=== PATIENT | male | born 1985 | race Two or more races ===

== ENCOUNTER 2018-02-13 07:30 | Inpatient (IN) | payer OTHER ==
[~2018-02-13] VITALS: Ht 182.9 cm; Wt 101.2 kg
[2018-02-20] MEDS ORDERED: NORCO 5-325 TA1 EACH ORAL (13:09)
[2018-02-21] VITALS (14 sets, daily range): BP systolic 119–134; BP diastolic 66–80
[2018-02-21] MEDS ORDERED: ceFAZolin sod 2 GM in D5W 110 ML IVPB ONE (07:00)
[2018-02-21] MEDS ORDERED: Midazolam 2mg/2ml Inj ONE (09:45)
[2018-02-21] MEDS ORDERED: fentaNYL 100 mcg/2 mL IV ONE (09:45)
[2018-02-21] MEDS ORDERED: Lidocaine 1% MPF 10mg/ml 5ml ONE (09:50)
[2018-02-21] MEDS ORDERED: Sodium Chloride 10ml vial INJ ONE ×3 (09:53→13:03)
--- NOTE | 2018-02-21 10:21 | Pre-Procedure Note/Attestation ---
Pre-Procedure Note/Attestation Complete Prior to Procedure Procedure Narrative: TLIF L5S1 and L45 with IC BMAC Indications for Procedure Pre-Operative Diagnosis: LUMBAR SPONDYLOSIS, STENOSIS, ANNULAR TEAR AND RADICULOPATHY Attestation I attest that I discussed the nature of the procedure; its benefits; risks and complications; and alternatives (and the risks and benefits of such alternatives ), prior to the procedure, with the patient (or the patient's legal dental detail representative). I attest that, if there was a reasonable possibility of needing a blood transfusion, the patient (or the patient's legal dental detail representative) was given the [facility] standardized written summary, pursuant to the Juancarlos Wib[place] Blood Safety Act ([place] Health and Safety Code # 1645, as amended). I attest that I re-evaluated the patient just prior to the surgery and that there has been no change in the patient's H&P, except as documented below: Mohan Deutsch MD Feb 21, 2018 10:21
[2018-02-21] MEDS ORDERED: Vancomycin 1gm inj IVPB ONE (10:48)
[2018-02-21] MEDS ORDERED: Bacitracin 50000 Units Vial ONE (10:49)
[2018-02-21] MEDS ORDERED: Bupivacaine w/Epi 0.5% 30ml Vial INJ ONE (10:49)
[2018-02-21] MEDS ORDERED: Thrombin 5000 units TOPIC ONE (10:49)
[2018-02-21] MEDS ORDERED: Gelfoam Size TOPIC ONE (10:49)
[2018-02-21] MEDS ORDERED: Succinylcholine 20mg/ml 10ml vial ONE (10:53)
[2018-02-21] MEDS ORDERED: Zemuron 50mg/5ml Inj IV ONE (10:53)
[2018-02-21] MEDS ORDERED: Sterile Water Irrig 1000ml IRRIG ONE (11:00)
[2018-02-21] MEDS ORDERED: LR 1000ml ONE (11:00)
[2018-02-21] MEDS ORDERED: Propofol 1,000mg/ 100ml btl IV ONE (11:00)
[2018-02-21] MEDS ORDERED: NS Irrig 1000ml ONE (11:00)
[2018-02-21] MEDS ORDERED: Heparin 1000 units/ml 1ml Vial ONE (11:10)
[2018-02-21] MEDS ORDERED: Morphine Sulfate 10mg/ml Inj ONE (12:10)
[2018-02-21] MEDS ORDERED: Glycopyrrolate 0.2mg/ml 1ml Vial ONE (12:17)
[2018-02-21] MEDS ORDERED: Ketorolac 30mg Inj ONE (12:17)
--- NOTE | 2018-02-21 12:28 | Anethesia Preoperative Eval ---
Anesthesia Pre-op PMH/ROS General Date of Evaluation: Feb 21, 2018 Time of Evaluation: 10:48 Anesthesiologist: Alberta ASA Score: ASA 2 Mallampati Score Class I : Soft palate, uvula, fauces, pillars visible Class II: Soft palate, uvula, fauces visible Class III: Soft palate, base of uvula visible Class IV: Only hard plate visible Mallampati Classification: Class II Surgeon: La Nena Diagnosis: Lumbar radiculopathy Surgical Procedure: L4-L5 L5-S1 laminotomy with interbody fusion Anesthesia History: none Family History: no anesthesia problems Allergies: Coded Allergies: No Known Allergies (Unverified , 02/20/18) Medications: see eMAR Patient NPO?: Yes NPO Date: Feb 20, 2018 NPO Time: 2358 Past Medical History Cardiovascular: Denies: HTN, CAD, AR, valve dz, arrhythmia, other Pulmonary: Denies: asthma, COPD, JERRI, other Gastrointestinal/Genitourinary: Reports: GERD - mild; Denies: CRI, ESRD, other Neurologic/Psychiatric: Reports: other - chronic mehul; Denies: dementia, CVA, depression/anxiety, TIA Endocrine: Denies: DM, hypothyroidism, steroids, other HEENT: Denies: cataract (L), cataract (R), glaucoma, TRIBE (L), TRIBE (R), other Hematology/Immune: Denies: anemia, DVT, bleeding disorder, other Musculoskeletal/Integumentary: Denies: OA, RA, DJD, DDD, edema, other Other: other - overweight PMH Narrative: as above PSxH Narrative: none Anesthesia Pre-op Phys. Exam Physician Exam Last Vital Signs Date Time Temp Pulse Resp B/P (MAP) Pulse Ox O2 Delivery O2 Flow Rate FiO2 02/21/18 10:06 Room Air 02/21/18 10:04 97.0 59 20 125/75 (92) 97 97.0 Constitutional: NAD Neurologic: CN 2-12 intact Cardiovascular: RRR, no M/R/G Respiratory: CTA Gastrointestinal: S/NT/ND Airway Exam Mallampati Score: Class II MO: full Neck: flexible ROM: full Teeth: missing Dentures: no upper, no lower Anesthesia Pre-op A/P Labs see chart Studies Pre-op Studies: EKG - NSR Risk Assessment & Plan Assessment: ASA 2 Plan: GA with ETT POV prevention neuromonitoring Status Change Before Surgery: No Pre-Antibiotics Drug: Ancef 2gr. Given Within 1 Hr of Incision: Yes Time Given: 11:43 James Pinzon MD Feb 21, 2018 12:28
[2018-02-21] MEDS ORDERED: LR 1000ml 1,000 ML IVLG SCH (12:29)
[2018-02-21] MEDS ORDERED: Acetaminophen (Non formulary) 100 ML IV ONE (12:30)
[2018-02-21] MEDS ORDERED: DiphenhydrAMINE 50mg/ml Inj IVP PRN (12:30)
[2018-02-21] MEDS ORDERED: Metoclopramide 10mg/2ml Inj IVP PRN (12:30)
[2018-02-21] MEDS ORDERED: Ketorolac 30mg Inj IV PRN (12:30)
[2018-02-21] MEDS ORDERED: fentaNYL 100 mcg/2 mL IV PRN (12:30)
[2018-02-21] MEDS ORDERED: Meperidine 50mg/ml Inj(FOR RIGORS ONLY) IV PRN (12:30)
[2018-02-21] MEDS ORDERED: Midazolam 2mg/2ml Inj IVP PRN (12:30)
[2018-02-21] MEDS ORDERED: Propofol 200mg/20ml IV ONE (14:55)
--- NOTE | 2018-02-21 16:39 | Immediate Post-Op Evaluation ---
Immediate Post-Op Evalulation Immediate Post-Op Evalulation Procedure: L4-L5-S1 laminotomy with discectomy and interbody fusion Date of Evaluation: Feb 21, 2018 Time of Evaluation: 16:38 IV Fluids: 2000 Blood Products: none Estimated Blood Loss: 200 Urinary Output: 300 Blood Pressure Systolic: 119 Blood Pressure Diastolic: 56 Pulse Rate: 74 Respiratory Rate: 20 O2 Sat by Pulse Oximetry: 99 Temperature (Fahrenheit): 98.1 Pain Score (1-10): 1 Nausea: No Vomiting: No Complications none Patient Status: reacts, patent, extubated, none Hydration Status: adequate James Pinzon MD Feb 21, 2018 16:39
--- NOTE | 2018-02-21 16:46 | Brief Operative Note ---
Immediate Post Operative Note Operative Note Pre-op Diagnosis: LUMBAR SPONDYLOSIS, STENOSIS, ANNULAR TEAR AND RADICULOPATHY Procedure: tlif L4 to s1 with ic bmac Post-op Diagnosis: same as pre-op Findings: consistent w/pre-op dx studies Surgeon: La Nena Glass Setter: Gianni Anesthesiologist: Alberta Anesthesia: general Specimen: yes Complications: none Condition: stable Fluids: 1800cc Estimated Blood Loss: volume - 200cc Drains: hemovac Implant(s) used?: Yes Mohan Deutsch MD Feb 21, 2018 16:46
[2018-02-21] MEDS ORDERED: Norco 5mg/325mg tab ORAL PRN (18:15)
[2018-02-21] MEDS ORDERED: Naloxone 0.4mg/ml Inj IVP PRN (18:15)
[2018-02-21] MEDS ORDERED: HYDROmorphone 1mg/ml Carpuject IVP PRN (18:15)
[2018-02-21] MEDS ORDERED: HYDROcodone/Acetamin 7.5/325 tab ORAL PRN (18:15)
[2018-02-21] MEDS ORDERED: HYDROmorphone 1mg/ml Carpuject SUBQ PRN (18:15)
[2018-02-21] MEDS: D5 1/2NS 1,000 ML IV SCH (18:35)
[2018-02-21] MEDS: ceFAZolin sod 1 GM in D5W 55 ML IV SCH (20:28)
[2018-02-21] MEDS ORDERED: ceFAZolin sod 1 GM in D5W 55 ML IV SCH (22:00)
[2018-02-22] VITALS: BP 126/75
[2018-02-22] MEDS: ceFAZolin sod 1 GM in D5W 55 ML IV SCH ×2 (03:18→13:05)
[2018-02-22 04:00] VITALS: BP 115/66
[2018-02-22] MEDS: D5 1/2NS 1,000 ML IV SCH ×2 (04:46→17:45)
--- NOTE | 2018-02-22 07:24 | Cardiology Progress Note ---
Assessment/Plan Assessment/Plan ptr seen and examined at request of dr graham and augustine post op pain dvt ppx pneumoatic stocking pain control ambulate as allowed diet as allowed d/c ivf when starts and tolerates diet [id number] Objective Last 24 Hour Vital Signs Date Time Temp Pulse Resp B/P (MAP) Pulse Ox O2 Delivery O2 Flow Rate FiO2 02/22/18 04:00 97.7 68 18 115/66 (82) 99 97.7 02/22/18 00:00 97.7 65 18 126/75 (92) 99 97.7 02/21/18 21:00 Nasal Cannula 3.0 02/21/18 20:00 97.9 72 18 126/76 (93) 99 97.9 02/21/18 19:10 98.1 80 19 129/76 (93) 99 98.1 02/21/18 18:25 Room Air 02/21/18 18:10 97.3 90 18 122/74 (90) 98 97.3 02/21/18 18:04 78 15 123/72 98 Nasal Cannula 3 02/21/18 18:00 97.8 76 18 131/71 100 Nasal Cannula 3 97.8 02/21/18 17:45 78 15 123/72 98 Nasal Cannula 3 02/21/18 17:30 76 14 130/80 97 Nasal Cannula 3 02/21/18 17:15 70 17 134/76 96 Nasal Cannula 3 02/21/18 17:13 97.2 02/21/18 17:00 78 16 132/66 98 Nasal Cannula 3 02/21/18 16:50 66 15 127/73 100 Simple Mask 6 02/21/18 16:45 69 17 120/72 100 Simple Mask 6 02/21/18 16:39 208.6 74 20 99 02/21/18 16:35 82 16 119/69 100 Simple Mask 6 02/21/18 16:25 97.7 77 20 130/75 100 Simple Mask 6 97.7 02/21/18 10:06 Room Air 02/21/18 10:04 97.0 59 20 125/75 (92) 97 97.0 Intake and Output 02/21/18 02/22/18 19:00 07:00 Intake Total 1390 ml Output Total 1560 ml Balance -170 ml Intake Oral 480 ml IV Total 910 ml Output Urine Total 1400 ml Drainage Total 160 ml Daneshrad,Kieran S. MD Feb 22, 2018 07:24
[2018-02-22 08:00] VITALS: BP 118/66
[2018-02-22] MEDS: Docusate 100mg cap ORAL SCH ×2 (10:06→17:44)
--- NOTE | 2018-02-22 11:41 | 48 Hour Post Anesthesia Eval ---
Post Anesthesia Evaluation Procedure: L4-L5-S1 laminotomy with discectomy and interbody fusion Date of Evaluation: Feb 22, 2018 Time of Evaluation: 06:20 Blood Pressure Systolic: 115 0: 66 Pulse Rate: 68 Respiratory Rate: 18 Temperature (Fahrenheit): 97.7 O2 Sat by Pulse Oximetry: 99 Airway: patent Nausea: No Vomiting: No Pain Intensity: 2 Hydration Status: adequate Cardiopulmonary Status: at baseline Mental Status/LOC: patient returned to baseline Post-Anesthesia Complications: 0 Follow-up care needed: N/A - further care as per primary team Rosemary Montana MD Feb 22, 2018 11:41
[2018-02-22 12:00] VITALS: BP 115/69
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
[2018-02-22 16:24] VITALS: BP 112/64
--- NOTE | 2018-02-22 17:58 | General Progress Note ---
Progress Note Progress Note NO LEG PAIN OR DISCOMFORT BACK PAIN AND SORENESS MODERATE AMBULATING WELL AVSS A AND O TIMES 3 DRESSING CDI HV 100CC LAST SHIFT LT INTACT IN THE LE CALVES SOFT AND NT 5/5 MOTOR IN UE AND LE LABS H AND H PENDING DOING WELL POD ONE OOB/PT LABS HV OUT IN THE AM MOST LIKELY SRIKANTH HAWKINSS Mohan Deutsch MD Feb 22, 2018 17:58
[2018-02-22 20:00] VITALS: BP 135/75
[2018-02-22] MEDS: HYDROcodone/Acetamin 7.5/325 tab ORAL PRN (23:19)
[2018-02-23] VITALS: BP 142/73
--- NOTE | 2018-02-23 00:45 | Operative Note - Dictated ---
DATE OF OPERATION: 02/21/2018 PREOPERATIVE DIAGNOSES: L4-L5 and L5-S1 disk protrusions with stenosis, annular tear, lower extremity radiculopathy with positive diskography at L4-L5 and L5-S1 with negative control at L3-L4. POSTOPERATIVE DIAGNOSES: L4-L5 and L5-S1 disk protrusions with stenosis, annular tear, lower extremity radiculopathy with positive diskography at L4-L5 and L5-S1 with negative control at L3-L4. PROCEDURE PERFORMED: 1. Interbody arthrodesis at L4-L5 and L5-S1. 2. Placement of biomechanical device at L4-L5 and L5-S1. 3. Posterior segmental pedicle screw instrumentation at L4, L5, S1 bilateral. 4. Posterolateral arthrodesis at L4-L5 and L5-S1. 5. Acquisition of local autograft. 6. Placement of allograft for posterolateral arthrodesis. 7. Acquisition of right iliac bone marrow aspirate through a separate fascial incision. 8. Microdissection via intraoperative microscope. SURGEON: Mohan Deutsch M.D. LAST INSERTER: Jose Luis Archer M.D. ANESTHESIOLOGIST: James Pinzon M.D. ANESTHESIA: General endotracheal anesthesia. SPECIMEN: Disc, L4-L5 and L5-S1. INTRAOPERATIVE FINDINGS: Spondylosis, disc height collapse, stenosis, disc protrusion at L4-L5 and L5-S1. EBL: 200 mL. FLUIDS: 1800 mL of crystalloid. INDICATIONS: This is a pleasant gentleman, who failed nonoperative treatment and had predominant low back pain with lower extremity radiculopathy, worse on the left side with failed nonoperative treatment. Option for above treatment was given. Risks, alternatives, and benefits were discussed with the patient at length. Consent form was signed. Risks were thoroughly discussed with the patient and the patient wished to proceed. DESCRIPTION OF OPERATION: The patient was brought into the operating room supine on a stretcher. Subsequently, appropriate IV lines were placed. A 2 g of Ancef was administered before the skin incision and an additional 1 g was administered intraoperatively. Anesthesia was induced. The patient was successfully intubated. A surgical time-out was called. Sequential compression devices were placed onto the bilateral lower extremities. A Sepulveda was placed under sterile conditions. SSEP and EMG monitoring leads were placed and remained stable throughout the case. Stimulus evoked EMG was also done after the pedicle screws were placed and the pedicle screws were deemed to be safe and there was no evidence of breaching of the pedicle screws. The patient now was gently turned onto the Giorgio frame table. All bony prominences well padded. The abdomen was assured to lie freely. Preoperative fluoroscopy was used to plan the incision. The patient was prepped and draped in usual sterile fashion with alcohol, chlorhexidine scrub, ChloraPrep, and Ioban draping. At this point, myself and my mailing machine assistant were prepped and gowned appropriately. A skin incision was made over the midline overlying the L4-L5 and L5-S1 interspaces and the L4 vertebral body. A monopolar cautery was used for dissection through the dorsal lumbar fascia and a subperiosteal dissection from L4-S1 was accomplished including dissection of the mammillary processes, the transverse processes, the sacral ala. Retractors were set into place. A radiopaque marker was placed. A lateral fluoroscopy was used to identify the L4-L5 and L5-S1 interspaces. Attention now was diverted to the left side at L4-L5 and L5-S1 and with the use of a high-speed drill and straight and curved curette, a dental probe, [place]inn[place] probe, nerve hook, an interlumbar laminotomy, medial facetectomy, and removal of the ligamentum flavum on the left side at L4-L5 and L5-S1 was accomplished and at this point, a long yaa was placed beneath the pars of L4 and beneath the pars of L5. Once this was done, a high-speed drill was used to completely remove the inferior facet of L4 and L5 for a complete facetectomy and removal of the ligamentum flavum. A [place]innett probe was used and placed under the superior facet of S1 and the superior facet of L5 and a high-speed drill was used to completely remove these superior facets for a complete facetectomy on the left side at L4-L5 and L5-S1 with complete decompression of the exiting and traversing nerve roots at both of these levels. Attention was first diverted to the L4-L5 level. A [place] 4 was used for microdissection and a nerve root retractor was used to gently medially retract the neural element at L4-L5. A disk herniation was found impinging the neural element including the traversing and exiting nerve roots. A box incision was made in the posterior anulus with a #11 scalpel and with different shaped and sized disc preparation instruments including zamzam, dental probe, Anabell probe, box curette, oval curette, Goldy Didier, pituitary rongeurs, Peapod. A radical diskectomy was done at L4-5. Endplate cartilage was removed. Endplate bone was well preserved and disk space irrigation was done. All loose debris was removed and at this point from the [employer] System, a trial measuring 9 mm in height and 26 mm in length was placed into the interbody space at L4-L5 and was found to recreate the disk height well and appose the endplates. Before this trial was placed, an interspinous distracting device was used to open the interbody space well. AP and lateral fluoroscopy revealed the trial to be fitting well in the interbody space at L4-L5. Now, attention was diverted to accessing the right iliac bone and with a Jamshidi needle, 30 mL of bone marrow aspirate was removed in 3 different locations and placed into 3 different 10 mL syringes and was placed sterilely off of the field for bone marrow aspirate concentrate. This concentrate was saved for later implantation into the interbody space at L4-L5 and L5-S1. Now, a PEEK interbody device from the [employer] System was chosen 9 mm in height, 26 mm in length with 6 degrees of lordosis and tamped into place at L4-L5. AP and lateral fluoroscopy revealed the implant to be in excellent position and in the midline once it was fully implanted. Please note that before the interbody device was placed, bone marrow aspirate concentrate allograft and local autograft, which was harvested from the facetectomy were placed anteriorly into the interbody space and also was placed into the PEEK interbody device. Later on during the case, 2 mL of fibrin glue was placed at the annulotomy site to prevent posterior migration of the BMP. Now, attention was diverted to the L5-S1 interspace and with the same instruments, the neural elements were medially retracted. A disc herniation was found and a box incision was made with a scalpel. A radical diskectomy was done with the same instruments and a trial from the RTI System was used. This time, an 8 mm trial was found to be fitting well in the interbody space and the PEEK interbody device from the [employer] System was chosen 8 mm in height, 26 mm in length, and 6 degrees of lordosis. Before, the PEEK interbody device was placed into the anterior interbody space, bone morphogenic protein, Cache allograft, and local autograft including bone marrow aspirate concentrate was placed anteriorly into the interbody space and was also placed into the PEEK interbody biomechanical device and the interbody device was tamped into place at L5-S1 with excellent apposition against the endplates. No violation of the endplates and good recreation of disk height and lordosis at L5-S1. This was confirmed via lateral and AP fluoroscopy and later on during the case, 2 mL of fibrin glue was placed at the annulotomy site at L5-S1 to prevent posterior migration of the bone morphogenic protein. Please note that multiple times during the case, copious triple antibiotic solution was used not only in the interbody spaces at L4-L5 and L5-S1, but also at the L4-L5 and L5-S1 superficial layers. Now, attention was diverted to the pedicle screw instrumentation and the pedicle screws were placed from the [employer] system. The mammillary processes at both L4 and L5 were dissected out and the inferolateral corner of the superior facet at S1 was dissected out and a starting airline pilot hole with a high-speed drill was used at the site. With a curved lengthy probes, the center of the pedicles were found bilaterally at L4, L5, and S1 and ball-tip probes were used. There was no cortical breaches. Appropriate-sized taps were used at each pedicle hole site and the following pedicle screws were placed at L4 bilaterally, 6.5 x 50 mm screws were placed at L5 on the left, 6.5 x 40 mm screw was placed at L5 on the right, 6.5 x 45 mm screw was placed, at S1 on the left, 7.5 x 40 mm screw was placed, at S1 on the right, 7.5 x 45 mm screw was placed. Each screw had excellent purchase and fluoroscopy revealed the screws to be in adequate position. Stimulus-evoked EMG was done. The screws were deemed to be safe. Decortication was completed of the transverse processes and the facet joint on the right side and the sacral ala bilaterally and a posterolateral arthrodesis was done with the use of local autograft, allograft, Cache putty as well as bone marrow aspirate concentrate. A 65 mm tenisha was placed on the left side. A 60 mm teinsha was placed on the right side. Set screws were placed. They were torqued appropriately and there was no cross threading of the set screws. Once this was accomplished, the posterolateral arthrodesis was completed and SSEP and EMGs remained stable. Attention was now diverted to closure. Hemostasis was achieved with Gelfoam, thrombin, bipolar cautery, and a large subfascial Hemovac drain was placed. The dorsal lumbar fascia was closed with #1 Vicryl sutures in a watertight interrupted fashion. The subdural and subcuticular layers were closed with 2-0 Vicryl sutures in a watertight fashion. The skin was closed with Dermabond. Sterile dressing tape was placed. There were no complications during the case. The patient was turned supine, was extubated in stable condition, was taken to the recovery room in stable condition. He was neurovascularly intact in the recovery room and was admitted to the hospital for monitoring. Postoperative instructions were given. Mohan Deutsch M.D. DR: ROYA JOB#: [id number] CC:
[2018-02-23] MEDS: D5 1/2NS 1,000 ML IV SCH ×2 (01:38→11:08)
[2018-02-23] MEDS: HYDROcodone/Acetamin 7.5/325 tab ORAL PRN ×2 (03:35→19:57)
[2018-02-23 04:00] VITALS: BP 119/68
[2018-02-23 07:26] LABS: BASOPHILS % (AUTO) 0.4 % (0.0-2.0); EOSINOPHILS % (AUTO) 0.1 % (0.0-3.0); HEMATOCRIT 34.5 % (42.0-52.0); HEMOGLOBIN 11.8 G/DL (14.2-18.0); LYMPHOCYTES % (AUTO) 17.7 % (20.0-45.0); MEAN CORPUSCULAR VOLUME 89 FL (80-99); MONOCYTES % (AUTO) 7.4 % (1.0-10.0); NEUTROPHILS % (AUTO) 74.4 % (45.0-75.0); PLATELET COUNT 172 K/UL (150-450); RED BLOOD COUNT 3.85 M/UL (4.70-6.10); RED CELL DISTRIBUTION WIDTH 11.2 % (11.6-14.8); WHITE BLOOD COUNT 10.2 K/UL (4.8-10.8)
[2018-02-23 07:37] LABS: ALANINE AMINOTRANSFERASE 24 U/L (12-78); ALBUMIN 3.1 G/DL (3.4-5.0); ALKALINE PHOSPHATASE 59 U/L (46-116); ANION GAP 8 mmol/L (5-15); ASPARTATE AMINO TRANSFERASE 28 U/L (15-37); BILIRUBIN,TOTAL 0.7 MG/DL (0.2-1.0); BLOOD UREA NITROGEN 5 mg/dL (7-18); CARBON DIOXIDE 28 MMOL/L (21-32); CHLORIDE 103 MMOL/L (98-107); CREATININE 0.9 MG/DL (0.55-1.30); POTASSIUM 3.2 MMOL/L (3.5-5.1); SODIUM 139 MMOL/L (136-145)
[2018-02-23 08:00] VITALS: BP 119/69
[2018-02-23] MEDS: Docusate 100mg cap ORAL SCH ×2 (08:08→17:15)
[2018-02-23] MEDS ORDERED: D5 1/2NS 1000ml IV ONE (09:05)
--- NOTE | 2018-02-23 11:34 | Cardiology Progress Note ---
Assessment/Plan Assessment/Plan 1. Lumbar spondylosis, stenosis, annular tear, and radiculopathy. 2. Postoperative pain. 3. post op fever post op pain dvt ppx pneumoatic stocking pain control ambulate as allowed diet as allowed d/c ivf when starts and tolerates diet this am i was called by rn about fever last nite labs ordered watch for recurrence of fever encouraged to use IS note dr hurd plans i have asked staff to notify me if has recurrent temp greater than [address] bradshaw has low grade now Subjective Cardiovascular: Denies: chest pain, lightheadedness, palpitations Respiratory: Denies: shortness of breath Gastrointestinal/Abdominal: Denies: abdominal pain Genitourinary: Denies: burning Objective Last 24 Hour Vital Signs Date Time Temp Pulse Resp B/P (MAP) Pulse Ox O2 Delivery O2 Flow Rate FiO2 02/23/18 09:00 Nasal Cannula 3.0 02/23/18 08:38 100.9 02/23/18 08:08 100.9 02/23/18 08:00 99.0 90 18 119/69 (86) 95 99.0 02/23/18 06:00 100.9 100.9 02/23/18 04:00 102.0 103 19 119/68 (85) 94 102.0 02/23/18 03:35 102.0 02/23/18 03:26 100.9 02/23/18 00:00 100.0 91 19 142/73 (96) 94 100.0 02/22/18 21:00 Nasal Cannula 3.0 02/22/18 20:00 99.2 91 19 135/75 (95) 100 99.2 02/22/18 18:47 98.5 02/22/18 17:44 98.5 02/22/18 16:24 98.5 83 20 112/64 (80) 100 98.5 02/22/18 14:43 98.8 02/22/18 12:00 98.8 85 20 115/69 (84) 95 98.8 02/22/18 11:41 207.9 68 18 99 General Appearance: no apparent distress, alert, moderate distress - when tries to sit up , other - dressin in back clean and dry no erythema no drainage , drain in place Neck: supple Cardiovascular: normal rate, regular rhythm Respiratory/Chest: lungs clear Extremities: normal range of motion, non-tender Intake and Output 02/22/18 02/23/18 19:00 07:00 Intake Total 1190 ml 1450 ml Output Total 2470 ml 60 ml Balance -1280 ml 1390 ml Intake Oral 1090 ml 250 ml IV Total 100 ml 1200 ml Output Urine Total 2250 ml Drainage Total 220 ml 60 ml # Voids 3 Laboratory Tests Test 02/23/18 05:15 White Blood Count 10.2 K/UL (4.8-10.8) Red Blood Count 3.85 M/UL (4.70-6.10) L Hemoglobin 11.8 G/DL (14.2-18.0) L Hematocrit 34.5 % (42.0-52.0) L Mean Corpuscular Volume 89 FL (80-99) Mean Corpuscular Hemoglobin 30.7 PG (27.0-31.0) Mean Corpuscular Hemoglobin Concent 34.3 G/DL (32.0-36.0) Red Cell Distribution Width 11.2 % (11.6-14.8) L Platelet Count 172 K/UL (150-450) Mean Platelet Volume 9.5 FL (6.5-10.1) Neutrophils (%) (Auto) 74.4 % (45.0-75.0) Lymphocytes (%) (Auto) 17.7 % (20.0-45.0) L Monocytes (%) (Auto) 7.4 % (1.0-10.0) Eosinophils (%) (Auto) 0.1 % (0.0-3.0) Basophils (%) (Auto) 0.4 % (0.0-2.0) Sodium Level 139 MMOL/L (136-145) Potassium Level 3.2 MMOL/L (3.5-5.1) L Chloride Level 103 MMOL/L (98-107) Carbon Dioxide Level 28 MMOL/L (21-32) Anion Gap 8 mmol/L (5-15) Blood Urea Nitrogen 5 mg/dL (7-18) L Creatinine 0.9 MG/DL (0.55-1.30) Estimat Glomerular Filtration Rate > 60 mL/min (>60) Glucose Level 113 MG/DL (74-106) H Calcium Level 8.0 MG/DL (8.5-10.1) L Total Bilirubin 0.7 MG/DL (0.2-1.0) Aspartate Amino Transf (AST/SGOT) 28 U/L (15-37) Alanine Aminotransferase (ALT/SGPT) 24 U/L (12-78) Alkaline Phosphatase 59 U/L (46-116) Total Protein 6.3 G/DL (6.4-8.2) L Albumin 3.1 G/DL (3.4-5.0) L Globulin 3.2 g/dL Albumin/Globulin Ratio 1.0 (1.0-2.7) Microbiology Date/Time Source Procedure Growth Status 02/21/18 10:05 Nasal Nares MRSA Culture - Final NO METHICILLIN RESISTANT STAPH AUREUS... Complete Kieran Burgess MD Feb 23, 2018 11:34
[2018-02-23 12:00] VITALS: BP 120/74
[2018-02-23 16:00] VITALS: BP 118/70
[2018-02-23 20:00] VITALS: BP 122/70
--- NOTE | 2018-02-23 23:22 | General Progress Note ---
Progress Note Progress Note DOING WELL MINIMAL LBP AND NO LEG PAIN AMBULATING WELL AVSS A AND O TIMES 3 INC CDI HV PULLED DRESSING CHANGED NO DRAINAGE CALVES SOFT ADN NT DOING WELL ON POD 2 DC TOMORROW POST OP INSTRUCTIONS GIVEN PAIN MANAGEMENT FU IN 7 TO TEN DAYS. H AND H 11 AND 34 HD STABLE Mohan Deutsch MD Feb 23, 2018 23:22
[2018-02-24] VITALS: BP 124/73
[2018-02-24 04:00] VITALS: BP 108/69
[2018-02-24] MEDS: HYDROcodone/Acetamin 7.5/325 tab ORAL PRN (04:11)
[2018-02-24 08:00] VITALS: BP 104/64
[2018-02-24] MEDS: Docusate 100mg cap ORAL SCH (08:27)
[2018-02-24] MEDS ORDERED: SOMA350 MG PO (09:03)
[2018-02-24] MEDS ORDERED: PERCOCET 5-3251 EACH ORAL (09:04)
[2018-02-24 09:11] LABS: APPEARANCE,URINE CLEAR; BILIRUBIN, URINE NEGATIVE (NEGATIVE); GLUCOSE, URINE (UA) NEGATIVE (NEGATIVE); KETONES,URINE NEGATIVE (NEGATIVE); LEUKOCYTE ESTERASE ,URINE 1+ (NEGATIVE); NITRITE,URINE NEGATIVE (NEGATIVE); PH,URINE 6.5 (4.5-8.0); PROTEIN,URINE 1+ (NEGATIVE); UROBILINOGEN,URINE NORMAL MG/DL (0.0-1.0)
[2018-02-24 09:22] LABS: COLOR,URINE YELLOW
--- NOTE | 2018-02-25 12:41 | Discharge Summary ---
Discharge Summary Hospital Course Date of Admission Feb 21, 2018 at 09:33 Date of Discharge Feb 24, 2018 at 10:45 Admitting Diagnosis LUMBAR SPONDYLOSIS, STENOSIS, ANNULAR TEAR AND RADICULOPATHY Reason for Hospitalization: elective surgery HPI John Palencia is a 32 year old male who was admitted on Feb 21, 2018 at 09:33 for lumbar spondylosis, stenosis, annular tear and radiculopathy. Patient was admitted for elective surgery. Consultations dr Burgess -, extruder Procedures s/p 02/[address] Deutsch 1. Interbody arthrodesis at L4-L5 and L5-S1. 2. Placement of biomechanical device at L4-L5 and L5-S1. 3. Posterior segmental pedicle screw instrumentation at L4, L5, S1 bilateral. 4. Posterolateral arthrodesis at L4-L5 and L5-S1. 5. Acquisition of local autograft. 6. Placement of allograft for posterolateral arthrodesis. 7. Acquisition of right iliac bone marrow aspirate through a separate fascial incision. 8. Microdissection via intraoperative microscope. Hospital Course status post surgery course of recovery uneventful initially IV fluids s/p perioperative antibiotics neurovascular status closely monitored, stable incision clean, dry, and intact initially with Hemovac, output closely monitored, Hemovac discontinued 02/23 pain management addressed pain specialist followed; pain controlled hemodynamically stable ambulated with PT /OT fall precautions maintained; safe for ambulation tolerated diet , IV fluids discontinued GI prophylaxis provided antiemetics were on board as needed initially Sepulveda catheter, discontinued 02/22 voided freely bowel regimen instituted postop fever noted, no leucocytosis encouraged IS use while in the bed blood cx negative urine cx+ cocci( colony count less than 10,000) , no leukocytosis fever resolved potassium replaced prior to discharge ( K-3.2) patient was stable for discharge: hemodynamically stable, neurovascularly intact , dressing changed, incision clean, pain controlled, ambulated, tolerated diet, voided freely discharge instructions provided follow up with surgeon as outpatient as advised by surgeon FINAL DIAGNOSES Lumbar spondylosis Lumbar stenosis Annular tear radiculopathy. s/p TLIF L4 toS1 with iliac crest bone marrow aspiration postoperative fever- resolved Discharge Medications Continued Medications: Carisoprodol* (Soma*) 350 Mg Tablet 350 MG PO TID for spasm, TAB (This prescription has been renewed) Oxycodone/Acetaminophen 5-325* (Percocet 5-325 Mg Tablet*) 1 Each Tablet 1 TAB ORAL Q4H PRN for For Pain, #50 TAB (This prescription has been renewed) Discontinued Medications: Hydrocodone Bit/Acetaminophen 5-325* (Shiloh 5-325*) 1 Each Tablet 1 TAB ORAL Q6H PRN for For Pain, #10 TAB 0 Refills Discharge Condition Upon Discharge: stable Discharge Disposition Patient was discharged to Home (01) Discharge Instructions Discharge Instructions Special Instructions I have been assigned to complete a D/C Summary on this account. I was not involved in the patient management Fabiola Ramirez NP Feb 25, 2018 12:41
== END 2018-02-24 10:45 | disposition home or self-care (01) | DRG 460 ==
LOC: SDSOVERFLO 02-21 09:33 → 3E 02-21 18:13
PROC: 07DR3ZZ Extraction of Iliac Bone Marrow, Percutaneous Approach (ICD-10-PCS; principal; 2018-02-21 10:00)
PROC: 0SG30AJ Fusion of Lumbosacral Joint with Interbody Fusion Device, Posterior Approach, Anterior Column, Open Approach (ICD-10-PCS; principal; 2018-02-21 10:00)
PROC: 0ST20ZZ Resection of Lumbar Vertebral Disc, Open Approach (ICD-10-PCS; principal; 2018-02-21 10:00)
PROC: 0ST40ZZ Resection of Lumbosacral Disc, Open Approach (ICD-10-PCS; principal; 2018-02-21 10:00)
PROC: 0SG00AJ Fusion of Lumbar Vertebral Joint with Interbody Fusion Device, Posterior Approach, Anterior Column, Open Approach (ICD-10-PCS; principal; 2018-02-21 10:00)
PROC: 01NB0ZZ Release Lumbar Nerve, Open Approach (ICD-10-PCS; principal; 2018-02-21 10:00)
DX: M51.16 Intervertebral disc disorders with radiculopathy, lumbar region (principal); M47.26 Other spondylosis with radiculopathy, lumbar region; M48.061 Spinal stenosis, lumbar region without neurogenic claudication; G89.18 Other acute postprocedural pain; R50.9 Fever, unspecified; V89.2XXS Person injured in unspecified motor-vehicle accident, traffic, sequela
CPT/HCPCS: 36415; 72020; 76001; 80053; 81001; 85025; 86850; 86900; 86901; 87040; 87081; 87086; 94003; 94150; J2250; J2405; J8499